=== PATIENT | male | born 2000 | race Caucasian/White ===

== ENCOUNTER 2023-06-15 13:09 | Emergency (ER) | payer OTHER ==
[~2023-06-15] VITALS: Ht 180.3 cm; Wt 90.7 kg
[2023-06-15 13:13] VITALS: BP 138/85; PULSE 82; RESP 16; TEMP 98.4; O2SAT 98
[2023-06-15] MEDS ORDERED: ACETAMINOPHEN 325 MG TAB PO ONE (14:20)
[2023-06-15 15:40] VITALS: BP 119/72; PULSE 69; RESP 18; TEMP 98.2; O2SAT 97
== END 2023-06-15 15:40 | disposition home or self-care (01) ==
LOC: MED 13:09
DX: S06.0X0A Concussion without loss of consciousness, initial encounter (principal); Z88.8 Allergy status to other drugs, medicaments and biological substances; W22.8XXA Striking against or struck by other objects, initial encounter; Y93.89 Activity, other specified; Y92.89 Other specified places as the place of occurrence of the external cause; Y99.8 Other external cause status
CPT/HCPCS: 70450; 99284